=== PATIENT | male | born 1995 | race Caucasian/White ===

== ENCOUNTER 2016-11-05 14:30 | Emergency (ER) | payer OTHER ==
[~2016-11-05] VITALS: Ht 182.9 cm; Wt 113.6 kg
[2016-11-05 14:32] VITALS: BP 174/90; PULSE 80; TEMP 98.9
[2016-11-05] MEDS ORDERED: ATIVAN 0.50.5 MG/TAB PO (16:43)
== END 2016-11-05 16:58 | disposition home or self-care (01) ==
LOC: COL.ER 14:30
DX: F41.9 Anxiety disorder, unspecified (principal)

== ENCOUNTER → 2016-11-09 | Outpatient (CLI) | payer OTHER ==
[~2016-11-09] MED LIST: ATIVAN 0.50.5 MG/TAB PO
== END ==
LOC: COL.LAB 15:32
DX: F41.9 Anxiety disorder, unspecified (principal)